=== PATIENT | female | born 1940 | race Caucasian/White ===

== ENCOUNTER → 2019-02-10 12:30 | Outpatient (CLI) | payer MEDICARE, OTHER ==
--- NOTE | 2019-02-12 11:20 | ST ---
PATIENT:JAIME SOMERS MEDICAL RECORD: [id number] SEX: F LOCATION:[facility] ORDER #: ADMISSION DATE: 02/10/19 AGE OF PATIENT: 78 REFERRING PHYSICIAN: INTERPRETING PHYSICIAN: CORRIE SPENCER MD DATE OF SERVICE: 02/10/2019 PROCEDURE: Nuclear stress test. INDICATIONS: Angina, shortness of breath, and hypertension. She was exercised on standard Rogelio protocol for 5 minutes, achieving greater than 85% max target heart rate response. She did have shortness of breath, angina, and ST-T changes consistent with ischemia during the stress portion of the test. 31 mCi of sestamibi was injected at peak stress and 9 mCi was used previously for rest images. FINDINGS: Gated SPECT reveals a preserved ejection fraction at 84% with good wall motion, thickening, and brightening throughout all segments. SPECT imaging Cardiolite was used as myocardial perfusion agent. There is reversible ischemia inferiorly. This includes basal, mid apical, and inferior segments. The degree of reversibility is mild to moderate. The amount of myocardium involved is moderate. OVERALL IMPRESSION: This is an abnormal nuclear stress test with symptomatology and EKG changes as well as reversible ischemia inferiorly. Hence, most likely, she does have hemodynamically significant coronary artery disease. We will proceed with coronary angiography as followup study if symptomatology persists and the patient is refractory to medical management. TRANSINT:[id number] Voice Confirmation ID: [id number] DOCUMENT ID: [id number] cc: CORRIE Snider MD at 1120 CC: [id number] DICTATION DATE: 02/11/19 1215 RECAPPER: 02/11/19 2204 [facility] CLI 02/10/19 [place] [id number] [place] [id number]
== END | disposition home or self-care (01) ==
LOC: D.HCCARDIO 12:30
PROVIDERS: ATTEND Internal Medicine Interventional Cardiology
DX: I20.9 Angina pectoris, unspecified (principal)